=== PATIENT | female | born 1985 ===

== ENCOUNTER → 2018-07-09 19:03 | Outpatient (REF) | payer SELFPAY ==
[2018-07-09 19:43] LABS: Appearance Urine UA CLEAR; Bilirubin Urine UA NEGATIVE (NEGATIVE); Ketones Urine UA NEGATIVE (NEGATIVE); Leukocyte Esterase Urine UA NEGATIVE (NEGATIVE); Occult Blood Urine UA NEGATIVE (Negative)
[2018-07-09 19:56] LABS: Bacteria Urine Moderate (10-30); Color Urine UA ORANGE; Culture Indicated Urine Specimen Cultured; RBC Urine 0-1/HPF (0-5/HPF); Squamous Epithelial Cell Urine 0-1 /HPF; Urine Comments NOTE:; WBC Urine 1-5/HPF (0-5/HPF)
== END ==
LOC: LAB 19:03
PROVIDERS: Visit Provider Nurse Practitioner Acute Care
DX: N39.0 Urinary tract infection, site not specified (principal); Z87.440 Personal history of urinary (tract) infections
CPT/HCPCS: 81001; 87086